=== PATIENT | female | born 1975 | race Caucasian/White ===

== ENCOUNTER 2018-11-14 09:18 | Inpatient (IN) | payer SELFPAY ==
[~2018-11-14] VITALS: Ht 152.4 cm; Wt 81.6 kg
[2018-11-14 09:22] VITALS: BP 131/92
[2018-11-14] MEDS ORDERED: NACL 0.9% 1,000 ML IV ONE (09:26)
[2018-11-14 09:48] LABS: BASOPHILS % (AUTO) 0.4 % (0.0-2.0); EOSINOPHILS # (AUTO) 0.2 K/uL (0-0.4); EOSINOPHILS % (AUTO) 1.6 % (0.0-4.0); HEMATOCRIT 37.9 % (36-48); LYMPHOCYTES # (AUTO) 3.9 K/uL (2.5-16.5); LYMPHOCYTES % (AUTO) 36.2 % (20.5-51.1); MEAN CORPUSCULAR HEMOGLOBIN 25 pg (27-31); MEAN CORPUSCULAR HGB CONC 32 g/dL (33-37); MEAN CORPUSCULAR VOLUME 77.1 fL (80-94); MONOCYTES # (AUTO) 0.7 K/uL (0.8-1.0); MONOCYTES % (AUTO) 6.5 % (1.7-9.3); NEUTROPHILS % (AUTO) 55.3 % (42.2-75.2); PLATELET COUNT (AUTO) 256 K/uL (140-450); RED BLOOD CELL COUNT(AUTO) 4.92 MIL/uL (4.20-5.40); RED CELL DISTRIBUTION WIDTH 17.1 % (11.6-13.7); WHITE BLOOD COUNT (AUTO) 10.9 K/uL (4.8-10.8)
[2018-11-14] MEDS ORDERED: PREG200C PO (09:54)
[2018-11-14] MEDS ORDERED: CLON0.2T43 PO (09:54)
[2018-11-14] MEDS ORDERED: MIRT15TA PO (09:54)
[2018-11-14] MEDS ORDERED: CYCL10TA13 PO (09:54)
[2018-11-14 10:01] LABS: APPEARANCE,URINE HAZY (CLEAR); BILIRUBIN,URINE NEGATIVE (NEGATIVE); BLOOD, URINE 3+ (NEGATIVE); COLOR,URINE YELLOW (YELLOW); LEUKOCYTE ESTERASE ,URINE NEGATIVE (NEGATIVE); NITRITE, URINE NEGATIVE (NEGATIVE); PH,URINE 5.5 (5.0-9.0); UGLUCOSE 3+ (NEGATIVE)
[2018-11-14 10:07] LABS: ALBUMIN 3.5 g/dL (3.4-5.0); ANION GAP 18.5 (8-16); ASPARTATE AMINOTRANSFERASE 19 U/L (15-37); CARBON DIOXIDE 21.3 mmol/L (21-32); CHLORIDE 95 mmol/L (98-107); CREATININE 0.9 mg/dL (0.6-1.3); GFR ARICAN-AMERICAN 89 mL/min (>90); GLUCOSE 290 mg/dL (74-106); POTASSIUM 3.8 mmol/L (3.5-5.1); SALICYLATE 4.8 mg/dL (2.8-20.0); SODIUM SERUM 131 mmol/L (136-145); TOTAL BILIRUBIN 0.2 mg/dL (0.0-1.0); UREA NITROGEN, BLOOD 21 mg/dL (7-18)
[2018-11-14 10:28] LABS: RBC,URINE 11-20 (MOD) /HPF (0-5); WBC,URINE 0-5 (RARE) /HPF (0-5)
[2018-11-14 10:51] LABS: BARBITURATE, URINE NEG. ng/ml (NEG <=200); BENZODIAZEPINE, URINE NEG. ng/mL (NEG <=200); CANNABINOID, URINE POS. ng/mL (NEG <=50); COCAINE, URINE NEG. ng/mL (NEG <=300); OPIATE, URINE POS. ng/mL (NEG <=2000); PHENCYCLIDINE SCREEN,URINE NEG. ng/mL (NEG <=25)
[2018-11-14 12:02] LABS: ACETAMINOPHEN < 0.5 ug/ml (10-30)
[2018-11-14] MEDS ORDERED: NACL 0.9% 1,000 ML IV SCH (12:07)
[2018-11-14] MEDS ORDERED: ONDANSETRON 4 MG/2 ML VIAL IM/IVP PRN (12:10)
[2018-11-14] MEDS ORDERED: ACETAMINOPHEN 325 MG TAB PO PRN (12:10)
[2018-11-14] MEDS ORDERED: HYDROcodone/APAP 5/325 MG 1 TAB TAB PO PRN (12:10)
[2018-11-14] MEDS ORDERED: DOCUSATE SODIUM 100 MG GELCAP PO PRN (12:10)
[2018-11-14] MEDS ORDERED: ZOLPIDEM 5 MG TAB PO PRN (12:10)
[2018-11-14] MEDS ORDERED: LORazepam 2 MG/ML VIAL IM/IVP PRN (12:10)
[2018-11-14 13:04] LABS: MAGNESIUM 1.8 mg/dL (1.8-2.4); PHOSPHORUS 5.5 mg/dL (2.5-4.9); THYROID STIMULATING HORMONE 1.73 uIU/mL (0.34-3.74)
[2018-11-14 13:10] VITALS: BP 131/70
[2018-11-14 13:17] LABS: PROTHROMBIN TIME 9.3 secs (10.8-13.4)
[2018-11-14] MEDS ORDERED: INSULIN LISPRO SLIDING SCALE 100 UNITS/ML VIAL SUBQ PRN (13:30)
[2018-11-14] MEDS ORDERED: DEXTROSE 50% 50 ML SYR IVP PRN (13:30)
[2018-11-14] MEDS ORDERED: DULO60EC PO (15:49)
[2018-11-14] MEDS ORDERED: BLOOD GLUCOSE MONITORING 1 DEV DEV FS SCH (16:30)
[2018-11-14] MEDS ORDERED: MIRTAZAPINE 15 MG TAB PO SCH (21:00)
[2018-11-14] MEDS ORDERED: PREGABALIN 50 MG CAP PO SCH (21:00)
== END 2018-11-14 15:50 | disposition left against medical advice (07) | DRG 917 ==
LOC: MED 09:18 → MTU 12:07
PROVIDERS: ADMIT General Practice; ATTEND General Practice
DX: T43.92XA Poisoning by unspecified psychotropic drug, intentional self-harm, initial encounter (principal); G92 Toxic encephalopathy; D68.59 Other primary thrombophilia; E87.1 Hypo-osmolality and hyponatremia; T39.92XA Poisoning by unspecified nonopioid analgesic, antipyretic and antirheumatic, intentional self-harm, initial encounter; E66.01 Morbid (severe) obesity due to excess calories; F43.10 Post-traumatic stress disorder, unspecified; Z53.21 Procedure and treatment not carried out due to patient leaving prior to being seen by health care provider; R31.9 Hematuria, unspecified; E11.40 Type 2 diabetes mellitus with diabetic neuropathy, unspecified; E83.39 Other disorders of phosphorus metabolism; F12.90 Cannabis use, unspecified, uncomplicated; Y92.89 Other specified places as the place of occurrence of the external cause; Z89.512 Acquired absence of left leg below knee; Z79.899 Other long term (current) drug therapy; Z68.35 Body mass index [BMI] 35.0-35.9, adult
CPT/HCPCS: 36415; 70450; 71045; 80053; 80305; 81001; 81025; 82948; 83036; 83690; 83735; 83880; 84100; 84134; 84443; 84484; 85025; 85610; 85730; 87081; 93005; 96360; 96361; 99285; G0480; G0482; J7030

== ENCOUNTER 2018-12-04 13:19 | Emergency (ER) | payer SELFPAY ==
[~2018-12-04] VITALS: Ht 167.6 cm; Wt 72.6 kg
[~2018-12-04 13:19] MED LIST: CLON0.2T43 PO; CYCL10TA13 PO; DULO60EC PO; MIRT15TA PO; PREG200C PO
[2018-12-04 13:20] VITALS: BP 126/83
--- NOTE | 2018-12-04 14:05 | NUR ---
LEFT WOUND TO STUMP X >1 WK ---BELOW KNEE AMPUTATION, RECURRING WOUND PT STATES SEEN AT [facility] DX OSTEOMYELITIS DRAINAGE NOTED
[2018-12-04 15:44] LABS: APPEARANCE,URINE CLEAR (CLEAR); BILIRUBIN,URINE NEGATIVE (NEGATIVE); BLOOD, URINE TRACE-I (NEGATIVE); COLOR,URINE YELLOW (YELLOW); LEUKOCYTE ESTERASE ,URINE NEGATIVE (NEGATIVE); NITRITE, URINE NEGATIVE (NEGATIVE); UGLUCOSE 3+ (NEGATIVE)
[2018-12-04 15:52] LABS: RBC,URINE 3-10 (FEW) /HPF (0-5); WBC,URINE 0-5 (RARE) /HPF (0-5)
[2018-12-04 15:54] LABS: BARBITURATE, URINE NEG. ng/ml (NEG <=200); BENZODIAZEPINE, URINE NEG. ng/mL (NEG <=200); CANNABINOID, URINE POS. ng/mL (NEG <=50); COCAINE, URINE NEG. ng/mL (NEG <=300); OPIATE, URINE NEG. ng/mL (NEG <=2000); PHENCYCLIDINE SCREEN,URINE NEG. ng/mL (NEG <=25)
--- NOTE | 2018-12-04 16:15 | NUR ---
pt requesting pain medication, ed md notified.
[2018-12-04 16:28] LABS: BASOPHILS % (AUTO) 0.2 % (0.0-2.0); EOSINOPHILS % (AUTO) 0.4 % (0.0-4.0); HEMATOCRIT 32.8 % (36-48); HEMOGLOBIN 10.6 g/dL (12.0-16.0); LYMPHOCYTES # (AUTO) 3.1 K/uL (2.5-16.5); LYMPHOCYTES % (AUTO) 28.6 % (20.5-51.1); MEAN CORPUSCULAR HEMOGLOBIN 25 pg (27-31); MEAN CORPUSCULAR HGB CONC 32 g/dL (33-37); MONOCYTES # (AUTO) 0.8 K/uL (0.8-1.0); MONOCYTES % (AUTO) 7.2 % (1.7-9.3); NEUTROPHILS % (AUTO) 63.6 % (42.2-75.2); PLATELET COUNT (AUTO) 289 K/uL (140-450); RED BLOOD CELL COUNT(AUTO) 4.26 MIL/uL (4.20-5.40); RED CELL DISTRIBUTION WIDTH 16.5 % (11.6-13.7); WHITE BLOOD COUNT (AUTO) 10.9 K/uL (4.8-10.8)
--- NOTE | 2018-12-04 16:40 | NUR ---
pt requesting pain medication, ed md notified.
[2018-12-04 16:49] LABS: ANION GAP 11.1 (8-16); CARBON DIOXIDE 23.5 mmol/L (21-32); CREATININE 0.7 mg/dL (0.6-1.3); POTASSIUM 3.6 mmol/L (3.5-5.1)
[2018-12-04 16:55] LABS: ALBUMIN 2.8 g/dL (3.4-5.0); TOTAL BILIRUBIN 0.2 mg/dL (0.0-1.0)
[2018-12-04] MEDS ORDERED: LORazepam 2 MG/ML VIAL IM ONE (17:35)
[2018-12-04 18:54] VITALS: BP 130/81
== END 2018-12-04 18:50 | disposition home or self-care (01) ==
LOC: MED 13:19
DX: L29.9 Pruritus, unspecified (principal); R45.1 Restlessness and agitation; I10 Essential (primary) hypertension; E11.51 Type 2 diabetes mellitus with diabetic peripheral angiopathy without gangrene; E11.42 Type 2 diabetes mellitus with diabetic polyneuropathy; Z89.512 Acquired absence of left leg below knee; Z88.5 Allergy status to narcotic agent; Z79.899 Other long term (current) drug therapy
CPT/HCPCS: 36415; 73590; 80053; 80305; 81001; 81025; 83605; 85025; 87040; 87086; 96372; 99284; J2060; Q0092

== ENCOUNTER 2019-04-07 19:07 | Emergency (ER) | payer OTHER ==
[~2019-04-07] VITALS: Ht 172.7 cm; Wt 90.7 kg
[2019-04-07 19:09] VITALS: BP 115/90
--- NOTE | 2019-04-07 19:09 | NUR ---
1906 ANNA TAKEN TO ER BED 6
--- NOTE | 2019-04-07 19:09 | NUR ---
TO ED 06 VIA EMS [facility]
--- NOTE | 2019-04-07 19:20 | NUR ---
PT IS SCREAMING, UNCOOPERATIVE, BEING VERBALLY ABUSIVE TO STAFF, CURSING AT NURSING STAFF. PT CRYING UNCONTROLLABLY AND YELLING IN BED.
--- NOTE | 2019-04-07 19:56 | NUR ---
PATIENT LEFT WITHOUT BEING SEEN BY DR. JIMÉNEZ. NO FURTHER CARE PROVIDED FOR PATIENT.
--- NOTE | 2019-04-07 19:56 | NUR ---
PT WANTS TO LEAVE AND NO LONGER RECEIVE TREATMENT OR BE SEEN BY A DOCTOR. PT ASKING FOR W/C TO BE TAKEN TO ER LOBBY TO WAIT FOR HER FAMILY TO PICK HER UP. DR. JIMÉNEZ MADE AWARE.
--- NOTE | 2019-04-07 19:57 | NUR ---
PT ASSISTED INTO W/C AND PLACED IN ER LOBBY TO WAIT FOR HER FAMILY. NO FURTHER CARE PROVIDED.
== END 2019-04-07 19:56 | disposition left against medical advice (07) ==
LOC: MED 19:07
DX: R10.9 Unspecified abdominal pain (principal); R11.2 Nausea with vomiting, unspecified; R19.7 Diarrhea, unspecified; Z53.21 Procedure and treatment not carried out due to patient leaving prior to being seen by health care provider
CPT/HCPCS: 81002; 81025

== ENCOUNTER 2020-07-14 18:02 | Inpatient (IN) | payer OTHER ==
[~2020-07-14] VITALS: Ht 170.2 cm; Wt 81.6 kg
--- NOTE | 2020-07-14 18:02 | NUR ---
Patient BIBA BLS, transferred to bed 6. RN evaluating patient at bedside.
[2020-07-14 18:05] VITALS: BP 134/80
--- NOTE | 2020-07-14 18:16 | NUR ---
45 y/o female from home c/o abd cramping x 2 wks, vaginal bleeding since last night, and a headahce. Pt presents with open wound to back, states she had abscess drained. Pt anxious and tearful in bed. 10/10 abd cramping with nausea and vomiting. Positioned in bed for comfort and placed on bedside monitor. medhx: HTN, DM
[2020-07-14] MEDS ORDERED: ONDANSETRON 4 MG/2 ML VIAL IVP ONE (18:25)
[2020-07-14] MEDS ORDERED: NACL 0.9% 1,000 ML IV ONE ×2 (18:25→20:25)
[2020-07-14] MEDS ORDERED: fentaNYL citrate 0.05 MG/ML VIAL IVP ONE (18:25)
--- NOTE | 2020-07-14 18:25 | NUR ---
HANNAH Dietrich at bedside examining pt
--- NOTE | 2020-07-14 18:38 | NUR ---
22g placed to right upper arm. Medications given at this time.
[2020-07-14] MEDS ORDERED: TRAZ-343 PO (18:54)
[2020-07-14] MEDS ORDERED: TRAM50TA1 PO (18:54)
[2020-07-14] MEDS ORDERED: LEVEMIR SUBQ (18:54)
--- NOTE | 2020-07-14 18:57 | NUR ---
400cc clear yellow urine collected from pt via straight cath.
[2020-07-14] MEDS ORDERED: TOR30I IM (18:58)
[2020-07-14] MEDS ORDERED: GABA300C PO (18:58)
[2020-07-14] MEDS ORDERED: BEN50 PO (18:58)
--- NOTE | 2020-07-14 19:08 | NUR ---
Patient taken to CT scan via gurney by [employer] [facility]
--- NOTE | 2020-07-14 19:17 | NUR ---
Pt report RECEIVED FROM SHIRA SUN . Transfer of care at this time.
[2020-07-14 19:22] LABS: APPEARANCE,URINE SL CLOUDY (CLEAR); BILIRUBIN,URINE NEGATIVE (NEGATIVE); BLOOD, URINE 3+ (NEGATIVE); COLOR,URINE YELLOW (YELLOW); LEUKOCYTE ESTERASE ,URINE NEGATIVE (NEGATIVE); NITRITE, URINE NEGATIVE (NEGATIVE); PH,URINE 5.5 (5.0-9.0); UGLUCOSE 3+ (NEGATIVE)
[2020-07-14 19:30] LABS: RBC,URINE 20-50 /HPF (0-5); WBC,URINE 0-5 /HPF (0-5)
[2020-07-14 19:31] LABS: FINE GRANULAR CASTS,URINE 0-10 /LPF (None Seen)
[2020-07-14 19:43] LABS: BASOPHILS % (AUTO) 0.2 % (0.0-2.0); EOSINOPHILS % (AUTO) 0.5 % (0.0-4.0); HEMATOCRIT 32.4 % (36-48); HEMOGLOBIN 10.4 g/dL (12.0-16.0); LYMPHOCYTES # (AUTO) 2.4 K/uL (2.5-16.5); LYMPHOCYTES % (AUTO) 25.9 % (20.5-51.1); MEAN CORPUSCULAR HEMOGLOBIN 29 pg (27-31); MEAN CORPUSCULAR HGB CONC 32 g/dL (33-37); MEAN CORPUSCULAR VOLUME 91.9 fL (80-94); MONOCYTES # (AUTO) 0.5 K/uL (0.8-1.0); MONOCYTES % (AUTO) 5.6 % (1.7-9.3); NEUTROPHILS # (AUTO) 6.3 K/uL (1.8-7.7); NEUTROPHILS % (AUTO) 67.8 % (42.2-75.2); PLATELET COUNT (AUTO) 229 K/uL (140-450); RED BLOOD CELL COUNT(AUTO) 3.53 MIL/uL (4.20-5.40); RED CELL DISTRIBUTION WIDTH 14.4 % (11.6-13.7); WHITE BLOOD COUNT (AUTO) 9.3 K/uL (4.8-10.8)
[2020-07-14 19:55] LABS: ALBUMIN 2.4 g/dL (3.4-5.0); ANION GAP 20.1 (8-16); CARBON DIOXIDE 15.2 mmol/L (21-32); CREATININE 1.4 mg/dL (0.6-1.3); POTASSIUM 4.3 mmol/L (3.5-5.1); TOTAL BILIRUBIN 0.2 mg/dL (0.0-1.0)
--- NOTE | 2020-07-14 20:05 | NUR ---
PT RESTING IN BED IN POSITION OF COMFORT, BED LOW AND LOCKED, SIDERAILS UP, VSS, WILL CONTINUE TO MONITOR
[2020-07-14] MEDS ORDERED: INSULIN REGULAR, HUMAN 100 UNIT/ML VIAL IVP ONE (20:25)
[2020-07-14] MEDS ORDERED: NACL 0.9% 1,000 ML IV SCH (20:53)
--- NOTE | 2020-07-14 20:54 | NUR ---
WOUND PHOTO TAKEN AND IN PT'S CHART (PRESENT ON ADMISSION )
[2020-07-14] MEDS ORDERED: INSULIN REGULAR, HUMAN 100 UNIT in NACL 0.9% 100 ML IV SCH ×2 (21:15)
[2020-07-14] MEDS ORDERED: DEXTROSE 50% 50 ML SYR IVP PRN (21:15)
[2020-07-14] MEDS ORDERED: cefTRIAXone 1,000 MG VIAL ONE (21:25)
[2020-07-14] MEDS: BLOOD GLUCOSE MONITORING 1 DEV DEV FS SCH ×3 (21:30→23:30)
--- NOTE | 2020-07-14 21:33 | NUR ---
PT RESTING IN BED IN POSITION OF COMFORT, BED LOW AND LOCKED, SIDERAILS UP, VSS, WILL CONTINUE TO MONITOR
--- NOTE | 2020-07-14 21:35 | NUR ---
BLOOD SUGAR ACCU CHECK 384, HANNAH HERRON MADE AWARE
--- NOTE | 2020-07-14 22:29 | NUR ---
Patient being evaluated by at bedside.
--- NOTE | 2020-07-14 22:30 | NUR ---
ACCU CHECK 338, MADE AWARE
--- NOTE | 2020-07-14 22:30 | NUR ---
PT RESTING IN BED IN POSITION OF COMFORT, BED LOW AND LOCKED, SIDERAILS UP, VSS, WILL CONTINUE TO MONITOR
--- NOTE | 2020-07-14 23:30 | NUR ---
PT RESTING IN BED IN POSITION OF COMFORT, BED LOW AND LOCKED, SIDERAILS UP, VSS, WILL CONTINUE TO MONITOR
--- NOTE | 2020-07-14 23:48 | NUR ---
* PT STATED SHE HAS NOT SMOKED OR USED DRUGS AND IS FEELING ANXIOUS AND WANTS SOMETHING TO HELP CALM DOWN, WILL PHONE
--- NOTE | 2020-07-14 23:50 | NUR ---
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
--- NOTE | 2020-07-14 23:53 | NUR ---
PHONED BACK AND GAVE VERBAL ORDER FOR 1MG IVP ATIVAN Q6HR PRN, NOTED AND CARRIED OUT
--- NOTE | 2020-07-14 23:58 | NUR ---
Flakito arreaga in [facility] - 07/15/20 at 0026 by CHITRA PT STATED SHE HAS NOT SMOKED OR USED DRUGS AND IS FEELING ANXIOUS AND WANTS SOMETHING TO HELP CALM DOWN, WILL PHONE
[2020-07-15] MEDS: BLOOD GLUCOSE MONITORING 1 DEV DEV FS SCH ×14 (00:30→20:59)
--- NOTE | 2020-07-15 00:30 | NUR ---
PT RESTING IN BED IN POSITION OF COMFORT, BED LOW AND LOCKED, SIDERAILS UP, VSS, WILL CONTINUE TO MONITOR
[2020-07-15 00:38] LABS: CARBON DIOXIDE 19.8 mmol/L (21-32); CREATININE 0.9 mg/dL (0.6-1.3); POTASSIUM 3.8 mmol/L (3.5-5.1)
--- NOTE | 2020-07-15 00:43 | NUR ---
PHONED [facility] AND SPOKE TO GRETCHEN (PHARMACIST) AND ASKED IF SHE CAN VERIFY THE INSULIN AND ATIVAN THAT IS NOT SHOWING IN THE eMAR YET, PHARMACIST STATED SHE WILL VERIFY THE MEDICATIONS NOW.
[2020-07-15] MEDS: LORazepam 2 MG/ML VIAL IVP PRN ×2 (00:51→21:17)
--- NOTE | 2020-07-15 00:51 | NUR ---
PT STILL FEELING ANXIOUS, GAVE PRN ATIVAN 1MG
--- NOTE | 2020-07-15 01:30 | NUR ---
PT RESTING IN BED IN POSITION OF COMFORT, BED LOW AND LOCKED, SIDERAILS UP, VSS, WILL CONTINUE TO MONITOR
[2020-07-15] MEDS: ACETAMINOPHEN 325 MG TAB PO PRN (01:52)
--- NOTE | 2020-07-15 01:52 | NUR ---
PT C/O PAIN, GAVE PRN TYLENOL 650MG
--- NOTE | 2020-07-15 02:30 | NUR ---
PT RESTING IN BED IN POSITION OF COMFORT, BED LOW AND LOCKED, SIDERAILS UP, VSS, WILL CONTINUE TO MONITOR
[2020-07-15] MEDS: MORPHINE SULFATE 4 MG/ML SYR IVP PRN ×5 (03:05→23:44)
--- NOTE | 2020-07-15 03:05 | NUR ---
PT C/O OF PAIN , STATING TYLENOL DID NOT PROVIDE MUCH RELIEF, SO GAVE 1MG PRN MORPHINE IVP AT THIS TIME.
--- NOTE | 2020-07-15 03:30 | NUR ---
PT RESTING IN BED IN POSITION OF COMFORT, BED LOW AND LOCKED, SIDERAILS UP, VSS, WILL CONTINUE TO MONITOR
--- NOTE | 2020-07-15 03:40 | NUR ---
RIGHT UPPER ARM IV INFILTRATED AND WAS D/C
--- NOTE | 2020-07-15 03:45 | NUR ---
LEFT EXTERNAL JUGULAR 20 GAUGE INSERTED AND HAS BLOOD RETURN AND FLUSHES
--- NOTE | 2020-07-15 04:01 | NUR ---
LAB AT BEDSIDE
--- NOTE | 2020-07-15 04:30 | NUR ---
PT RESTING IN BED IN POSITION OF COMFORT, BED LOW AND LOCKED, SIDERAILS UP, VSS, WILL CONTINUE TO MONITOR
[2020-07-15 05:16] LABS: BASOPHILS % (AUTO) 0.4 % (0.0-2.0); EOSINOPHILS # (AUTO) 0.2 K/uL (0-0.4); EOSINOPHILS % (AUTO) 1.6 % (0.0-4.0); HEMATOCRIT 31.1 % (36-48); HEMOGLOBIN 10.3 g/dL (12.0-16.0); LYMPHOCYTES % (AUTO) 48.2 % (20.5-51.1); MEAN CORPUSCULAR HEMOGLOBIN 29 pg (27-31); MEAN CORPUSCULAR HGB CONC 33 g/dL (33-37); MEAN CORPUSCULAR VOLUME 87.6 fL (80-94); MONOCYTES # (AUTO) 0.6 K/uL (0.8-1.0); MONOCYTES % (AUTO) 6.2 % (1.7-9.3); NEUTROPHILS # (AUTO) 4.5 K/uL (1.8-7.7); NEUTROPHILS % (AUTO) 43.6 % (42.2-75.2); PLATELET COUNT (AUTO) 239 K/uL (140-450); RED BLOOD CELL COUNT(AUTO) 3.55 MIL/uL (4.20-5.40); RED CELL DISTRIBUTION WIDTH 14.1 % (11.6-13.7); WHITE BLOOD COUNT (AUTO) 10.4 K/uL (4.8-10.8)
--- NOTE | 2020-07-15 05:30 | NUR ---
PT ASLEEP IN BED IN POSITION OF COMFORT, BED LOW AND LOCKED, SIDERAILS UP, VSS, WILL CONTINUE TO MONITOR
--- NOTE | 2020-07-15 05:38 | NUR ---
PHONED EXCHANGE AND SPOKE TO BAUTISTA AND ASKED HER TO PAGE
--- NOTE | 2020-07-15 05:44 | NUR ---
PHONED BACK AND I INFORMED HIM THE LAST ACCU CHECK WAS 145 AND TOLD HIM WHEN THERE IS NORMALLY AN ICU HOLD IN THE ER AND THE PT IS ON AN INSULIN DRIP THERE IS A STANDING ORDER THAT STATES TO SWITCH TO D5 1/2NS WHEN BLOOD SUGAR FALLS BELOW 200. GAVE T/O TO STOP NS AND SWITCH TO D5 1/2NS AT 80ML/HR, NOTED AND CARRIED OUT. ALSO, INFORMED THAT THERE USUALLY IS AN ORDER FOR INSULIN DRIP BASED ON WEIGHT, AND INQUIRED IF WOULD LIKE TO SWITCH TO THE INSULIN DRIP ORDER, HE STATED HE TRIED BUT THE COMPUTER WOULD NOT ALLOW HIM TO, SO THE INSULIN DRIP TITRATION BY UNITS/HR IS WHAT HE PUT IN THE eMAR TO BE FOLLOWED.
[2020-07-15] MEDS ORDERED: DEXT 5% / NACL 0.45% 1,000 ML IV SCH (05:50)
[2020-07-15 06:00] LABS: ALBUMIN 2.3 g/dL (3.4-5.0); ANION GAP 15.4 (8-16); CARBON DIOXIDE 19.4 mmol/L (21-32); CREATININE 0.8 mg/dL (0.6-1.3); MAGNESIUM 1.8 mg/dL (1.8-2.4); POTASSIUM 3.8 mmol/L (3.5-5.1); TOTAL BILIRUBIN 0.2 mg/dL (0.0-1.0)
--- NOTE | 2020-07-15 06:30 | NUR ---
PT RESTING IN BED IN POSITION OF COMFORT, BED LOW AND LOCKED, SIDERAILS UP, VSS, WILL CONTINUE TO MONITOR
--- NOTE | 2020-07-15 07:00 | NUR ---
TRANSPORTED PT TO ICU BED 4
--- NOTE | 2020-07-15 07:20 | NUR ---
Patient will be admitted to care of . Admited to ICU. Will go to room 4. Belongings list completed. Report to SHIRA GAYTAN.
--- NOTE | 2020-07-15 08:07 | NUR ---
PATIENT COMPLAINED 8/10 PAIN ON HER BACK ABSCESS, DESCRIBED PAIN SHARP, AND SEVERE. ADMINISTERED PRN PAIN MED MORPHINE VIA IVP AND SCHEDULED ENOXAPARIN VIA SUBQ, MEDS EDUCATION PROVIDED TO PATIENT, AND PATIENT VERBALIZED UNDERSTANDING. PATIENT IS RESTING ON BED AT THIS TIME. INSTRUCTED PATIENT TO USE THE CALL LIGHT FOR ANY ASSISTANCE, PATIENT WAS AWARE. SAFETY MEASURES IN PLACE. BED IN LOW POSITION, CALL LIGHT WITHIN REACH, BED ALARM ACTIVATED.
--- NOTE | 2020-07-15 08:17 | NUR ---
CHECKED BLOOD GLUCOSE AND RECEIVED 155, INSULIN DRIP IS GOING AT 1 UNIT/HR.
[2020-07-15 08:21] LABS: ANION GAP 14.9 (8-16); CARBON DIOXIDE 19.2 mmol/L (21-32); CREATININE 0.7 mg/dL (0.6-1.3); POTASSIUM 4.1 mmol/L (3.5-5.1)
--- NOTE | 2020-07-15 08:56 | NUR ---
DR WARREN IS ASSESSING PATIENT AT BEDSIDE. PER DR WARREN, MAY DC INSULIN DRIP AND PATIENT MAY RESUME EATING. SHE WILL INPUT ORDERS FOR LONG ACTING INSULIN AND IVF. PROVIDED FOOD TRAY TO PATIENT.
[2020-07-15] MEDS ORDERED: ENOXAPARIN 40 MG/0.4 ML SYR SUBQ SCH (09:00)
[2020-07-15 09:04] VITALS: BP 113/72
--- NOTE | 2020-07-15 09:13 | NUR ---
PATIENT HAS BEEN SCREENED AND CATEGORIZED HIGH NUTRITION RISK. PATIENT WILL BE SEEN WITHIN 1-2 DAYS OF ADMISSION. 07/15/20-07/16/[address]
[2020-07-15] MEDS: NACL 0.9% 1,000 ML IV SCH ×2 (10:09→21:40)
--- NOTE | 2020-07-15 10:35 | NUR ---
ASSIST PATIENT TO USE THE BEDSIDE COMMODE FOR BM AND BACK TO BED SAFELY. REQUESTED FOR EXTRA PILLOW, PROVIDED. PATIENT IS RESTING ON BED COMFORTABLY AND WATCHING TV. NO SIGNS OF DISTRESS NOTED. DRAW IN HAND IN PLACE. SAFETY MEASURES IN PLACE. BED IN LOW POSITION AND CALL LIGHT WITHIN REACH.
[2020-07-15 11:04] VITALS: BP 111/61
--- NOTE | 2020-07-15 11:05 | NUR ---
DC PLANNIN YRS OLD FEMALE HOMELESS PATIENT WAS ADMITTED FROM ER WITH A DX OF DKA AND ACUTE UTI . 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 ADMITTED TO ICU ON DKA PROTOCOL. PT HAS WOUND ON HER BACK S/P I&D AT [facility]. URINE CULTURE PENDING. ADMINISTERED IVF AND IV ABX ROCEPHIN. SALES AND MARKETING ASSISTANT TO EVALUATE FOR HOMELESSNESS. CM TO FOLLOW. Addendum: 07/16/20 at 1033 by Anat Enamorado CM SPOKE TO PATIENT SHE IS WILLING TO GO TO A SNF SHE PREFERS [facility] BECAUSE SHE HAS BEEN THERE BEFORE AND IT IS CLOSE BY HER CHILDREN. SHE STATED THAT SHE IS HOMELESS BUT SOMETIMES STAYS WITH HER MOTHER BUT IT IS HARD FOR HER TO STAY THERE BECAUSE SHE CAN NOT AMBULATE UP AND DOWN THE STAIRS. Addendum: 07/16/20 at 1044 by Anat Enamorado CM LARY NAYLOR: SPOKE TO ALEKSEY AT [facility] SHE STATED THAT "UNFORTUNATELY THIS PATIENT IS NOT WELCOME BACK TO THEIR FACILITY." I WILL REACH OUT TO [facility]. Addendum: 07/16/20 at 1148 by Anat Enamorado CM LARY NAYLOR: FAXED PATIENTS CLINICALS TO [facility] [phone] AND FOLLOWED UP WITH [facility]. SHE IS REVIEWING THE PATIENTS CLINICALS. Addendum: 07/16/20 at 1223 by Anat Enamorado CM LARY NAYLOR: FOLLOWED UP WITH CASSIUS AT [facility] SHE SAID SHE WILL CONTACT ME BACK IN AN HOUR BECAUSE HER DON WAS IN A MEETING. Addendum: 07/16/20 at 1355 by Anat Enamorado CM LARY NAYLOR: SPOKE WITH [facility] AT THIS TIME THEY ARE NOT ABLE TO ACCEPT THIS PATIENT DUE TO BED AVAILABILITY. THEY HAVE HAD AN INCREASE OF PATIENT TEST POSITIVE FOR COVID SO THEY ARE FULL AT THIS TIME. Addendum: 07/16/20 at 1358 by Anat Enamorado CM LARY NAYLOR: FAXED PATIENTS CLINICALS TO [facility] WILL FOLLOW UP. Addendum: 07/17/20 at 0850 by Anat Enamorado CM DC MORTAR MIXER: SPOKE WITH MAYLIN PHILLIPS [facility] THIS MORNING SHE WILL LET ME KNOW IF THEY HAVE AN AVAILABLE BED TODAY AFTER THEIR MORNING MEETING AROUND 10:00 AM Addendum: 07/17/20 at 1015 by Anat Enamorado DC MORTAR MIXER: FOLLOWED UP WITH MANNIE AT [facility] SHE PROVIDED AUTH FOR SNF [id number] AND TRANSPORTATION [id number]. SPOKE TO HER ABOUT THIS PATIENT BEING A LITTLE DIFFICULT TO FIND PLACEMENT FOR SHE ASKED THAT I FAX CLINICALS TO [facility] BECAUSE [facility] "DIFFICULT PLACEMENT TEAM" HAS BEEN TRYING TO FIND PLACEMENT FOR THIS PATIENT WELL AND HAS BEEN IN CONTACT WITH THERESE AT [facility]. FAXED CLINICALS AND SPOKE TO THERESE. SHE WILL FOLLOW UP WITH ME. ALSO SPOKE TO MANNIE REGARDING ORDER FOR WALKER, SHE STATED THAT THE PATIENT ALREADY HAS ONE AND WILL NOT BE ABLE TO GET AUTH FOR ANOTHER BUT SHE WILL LOOK INTO SEEING IF THE PATIENT WILL QUALIFY FOR A WHEEL CHAIR Addendum: 07/17/20 at 1129 by Anat Enamorado CM LARY NAYLOR: FOLLOWED UP WITH THERESE AT [facility] [phone]. THIS PATIENT HAS BEEN ACCEPTED TO ROOM [address] UNDER [address]OW[address]. THERESE ASKED THAT I SET UP TRANSPORTATION AFTER 6:00 PM BECAUSE THEY ARE WORKING ON ROOM CHANGES. NOTIFIED SHIRA CAZARES. Addendum: 07/17/20 at 1146 by Anat Enamorado CM LARY NAYLOR: TRANSPORTATION HAS BEEN SET UP WITH [facility] [phone] FOR 6:00 PM. NOTIFIED SHIRA
--- NOTE | 2020-07-15 11:08 | NUR ---
WOUND CARE EVALUATION NOTE: WOUND ASSESSMENT DONE TO THIS 45 Y/O FEMALE PT. WITH PAST MEDICAL HX OF DKA, DM, DRUG ABUSE, AND RECENT I&D TO POSTERIOR RIGHT UPPER BACK, MULTIPLE DRY PEELING SCABS EXTREMITIES AND TRUNK OF BODY. PER PT. SHE HAS HOME HEALTH NURSE DO HER WOUND CARE 3X/WEEK FOR PAST 3 WEEKS. POC DISCUSSED WITH PRIMARY RN AND PT. PT. VERBALIZES UNDERSTANDING. INTEGUMENTARY: -LEFT BKA STUMP OLD HEALED SCARS -LEFT MEDIAL UPPER THIGH 0.5X0.5CM SUPERFICIAL DEPTH, NO ODOR, SMALL AMOUNT SEROSANGUINEOUS DRAINAGE, VERA-WOUND SKIN WARM WITH INDURATION, PAIN TO TOUCH 4/10 -POSTERIOR RIGHT UPPER BACK SURGICAL WOUND 10X5X0.2CM 100% GRANULATING TISSUE, NO ODOR, WOUND BED IS MOIST, VERA WOUND SKIN DRY INTACT. RECOMMENDATIONS: -ULTRASOUND TO LEFT MEDIAL UPPER THIGH TO R/O ABSCESS -CLEANSE SURGICAL WOUND TO POSTERIOR RIGHT UPPER BACK WITH NS, PAT DRY, APPLY HYDROGEL WOT WOUND BED AND COVER WITH COMPOSITE DRESSING QD AND PRN IF SOILING -CONTINUE TO HAVE HOME HEALTH FOR WOUND CARE WHEN DISCHARGED
--- NOTE | 2020-07-15 11:30 | NUR ---
ADMITTING CALLED AND WANTED TO OBTAIN INFORMATION FROM PATIENT, BUT PATIENT REFUSED TO TALK TO ANYONE. PER PATIENT, HER EMERGENCY CONTACT IS HER MOM AQUILINO, BUT REQUEST NOT TO RELEASE ANY INFORMATION TO AQUILINO, MAY ONLY TELL AQUILINO THAT SHE IS IN THE HOSPITAL. PATIENT IS SLEEPY ON BED COMFORTABLY AND AROUSABLE TO VOICE. CONTINUOUS MINING MACHINE COMPANY MINER IN PLACE. SAFETY MEASURES IN PLACE.
--- NOTE | 2020-07-15 11:36 | NUR ---
PRODUCT MARKETING DIRECTOR NOTE: ESTHER WAS UNABLE TO MEET PATIENT AT BEDSIDE. SW WILL FOLLOW UP WITH ICU NURSE TO COMPLETE ASSESSMENT. Addendum: 07/15/20 at 1346 by Reji Yee SW WAS UNABLE TO MEET PATIENT AT BEDSIDE DUE TO MEDICAL CONDITION. ESTHER CONTACTED SHIRA GAYTAN REGARDING COMPLETING ASSESSMENT WITH PATIENT. PER LUCILA, PATIENT REFUSED TO SPEAK ON THE PHONE. ESTHER WILL FOLLOW UP WITH PATIENT. Addendum: 07/15/20 at 1407 by Reji Yee Patient's Orientation Unable To Assess Information Provided By AQUILINO ALICIA - MOTHER Comments SW WAS UNABLE TO MEET WITH PATIENT AT BEDSIDE DUE TO MEDICAL CONDITION. SW WAS PROVIDED AQUILINO ALICIA [phone]. AQUILINO PROVIDED PATIENT'S HOME ADDRESS: [address] [place] [address] [place] [address]. Chargeback Specialist, Realtionship and Phone Number AQUILINO GORMAN [phone] Healthcare Power of Feeder Catcher Tobacco No Does Patient Have a POLST No Identifying Problems No Social Work Triggers Is A Social Work Consult Needed No Mandate Report Filed No Explanation Of Identifying Problems PATIENT IS A 45-YEAR-OLD FEMALE ADMITTED FOR ACUTE UTI. PATIENT HAS PMHX OF DIABETES AND LEFT LEG AMPUTATION. SW WILL PROVIDE SUBSTANCE ABUSE RESOURCES IN PATIENT'S CHART FOR DISCHARGE. Admitted From Home Pre-Admission Level Of Functioning Status Independent With DME Level Of Functioning Comment PER AQUILINO, PATIENT IS ABLE TO CARE FOR HERSELF WITH ELECTRIC WHEELCHAIR. Prior Resources/Services Used In Last 12 Months Substance Use Prior Resources/Service Comments AQUILINO STATED PATIENT USED TO GO TO [facility] FOR HEROIN ADDICTION. Other DME: ELECTRIC WHEELCHAIR. Living Situation Apartment Lives With Family Patient Had Caregiver No Home Support No Caregiver Issues Financial Issues No Known Financial Issue Factors/Needs No D/C Needs Identified Pt/Rep Participated In Discharge Plan Yes Patient/Family Agress With Discharge Plan Yes Discharge Plan Comments TENTATIVE DISCHARGE PLAN IS FOR PATIENT TO RETURN HOME. DC Plan Status Initiated
[2020-07-15] MEDS ORDERED: SKINTEGRITY HYDROGEL TP PRN (11:40)
[2020-07-15] MEDS: INSULIN LISPRO SLIDING SCALE 100 UNITS/ML VIAL SUBQ PRN ×3 (11:44→21:12)
--- NOTE | 2020-07-15 11:44 | NUR ---
CHECKED BLOOD GLUCOSE AND RECEIVED 237, ADMINISTERED 4 UNIT OF HUMALOG, MED EDUCATION PROVIDED. DELIVERED LUNCH TRAY TO PATIENT'S ROOM. PATIENT IS IN ULTRASOUND AT THIS TIME. NO SIGNS OF DISTRESS NOTED. INFANTRY UNIT LEADER IN PLACE. SAFETY MEASURES IN PLACE.
[2020-07-15 12:00] VITALS: BP 115/64
--- NOTE | 2020-07-15 12:25 | NUR ---
PATIENT COMPLAINED 8/10 PAIN ON HER BACK, SHE SAID, "IT HURTS ME SO BADLY, I NEED SOMETHING TO HELP." REPOSITIONED AND ADJUSTED THE PILLOW, PATIENT STATED, " I NEED PAIN MED." MEDICATED WITH MORPHINE, MED EDUCATION PROVIDED, PATIENT FINISHED HER LUNCH, TOOK TRAY OFF. PATIENT IS LYING ON BED AND WATCHING TV. NO SIGNS OF ACUTE DISTRESS NOTED. 6TH GRADE TEACHER IN PLACE. SAFETY MEASURES IN PLACE.
--- NOTE | 2020-07-15 12:50 | NUR ---
PATIENT COMPLAINED THAT SHE DOESN'T LIKE HER LUNCH AND WOULD LIKE TO GET SALAD INSTEAD, PROVIDED. PATIENT IS EATING SALAD ON BED AT THIS TIME. NO SIGNS OF ACUTE DISTRESS NOTED. TOPPIECE CUTTER IN PLACE. SAFETY MEASURES IN PLACE.
--- NOTE | 2020-07-15 13:29 | NUR ---
DR BARBOSA IS ROUNDING ON PATIENT AND WAS AWARE THAT PATIENT WILL BE TRANSFER TO TELEMETRY.
[2020-07-15] MEDS: SKINTEGRITY HYDROGEL TP SCH (13:38)
--- NOTE | 2020-07-15 13:43 | NUR ---
CLEANSED WITH NS, PAD DRY, APPLIED HYDROGEL, SECURED WITH DECOMPOISITION DRESSING, PATIENT TOLERATED WELL. WOUND EDUCATION PROVIDED AND PATIENT VERBALIZED UNDERSTANDING. ASSISTED PATIENT TO USE THE BEDSIDE COMMODE AND BACK ON BED SAFELY. MANAGER HOSPICE IN PLACE. SAFETY MEASURES IN PLACE.
--- NOTE | 2020-07-15 14:39 | NUR ---
07/15/20 RD INITIAL ASSESSMENT COMPLETED PLEASE REFER TO NUTRITION ASSESSMENT UNDER CARE ACTIVITY FOR ESTIMATED NUTRITIONAL NEEDS. 1. CONTINUE [facility] 60GM DIET TOLERATED 2. RD PROVIDED NUTRITION EDUCATION ON DIABETES 3. PROVIDE FOOD PREFERENCE IN COMPLIANCE TO [facility] DIET 4. RD TO FOLLOW-UP 3-5 DAYS, MODERATE RISK RAI CHACON RD
[2020-07-15 16:00] VITALS: BP 118/77
--- NOTE | 2020-07-15 16:29 | NUR ---
DR PENALOZA IS ASSESSING PATIENT AT BEDSIDE.
[2020-07-15] MEDS ORDERED: LIDOCAINE MPF 1% 10 MG/ML VIAL INJ SCH (16:35)
[2020-07-15] MEDS ORDERED: LIDOCAINE MPF 1% 5 ML ONE ×2 (16:38→16:40)
--- NOTE | 2020-07-15 16:38 | NUR ---
CHECKED BLOOD GLUCOSE AND RECEIVED 228, COVERED 4 UNIT OF HUMALOG.
[2020-07-15] MEDS ORDERED: HYDROmorphone 1 MG/ML AMP IVP PRN (16:40)
--- NOTE | 2020-07-15 16:45 | NUR ---
CONSENT OBTAINED FOR I&D.
[2020-07-15] MEDS ORDERED: HYDROmorphone 1 MG/ML AMP ONE (16:56)
--- NOTE | 2020-07-15 17:30 | NUR ---
PATIENT TRANSFERRED TO TELEMETRY ROOM 111B WITH ALL PATIENT'S BELONGINGS AND MEDICATION. REPORT GAVE TO ASSIGNED RUPERTO RN. NOTIFIED [facility] TO SEND DINNER TRAY TO TELEMETRY ROOM 111B.
--- NOTE | 2020-07-15 17:31 | NUR ---
RECEIVED REPORT FROM ICU NURSE. RECEIVED 45Y/O FEMALE FROM HOME. WITH CC OF LOW BACK PAIN AND DYSURIA AND DX OF HHNK. PT IS AOX4, ABLE TO VERBALIZE NEEDS, NSR ON TELE MONITOR, ON ROOM AIR, PT IS CONTINENT, REQUIRES ONE PERSON ASSIST TO COMMODE. NO C/O PAIN AT THIS TIME, NO SOB. WITH IV ON LEFT IJ 20G RUNNING NS AT 75CC/HR. SKIN NOT INTACT. WITH UPPER BACK WOUND S/P I&D, LEFT INNER THIGH ABSCESS S/P I&D AND CASIE SCAB. SAFETY PRECAUTIONS IN PLACE. CALL LIGHT WITHIN REACH. WILL CONTINUE TO MONITOR
--- NOTE | 2020-07-15 18:15 | NUR ---
COVID RAPID TEST DONE AND SPECIMEN SENT TO LAB
--- NOTE | 2020-07-15 19:00 | NUR ---
WITH C/O UPPER BACK WOUND PAIN AND DYSURIA 06/24. MEDICATED WITH MORPHINE ORDERED. WILL ENDORSE TO NEXT SHIFT FOR CONTINUITY OF CARE
--- NOTE | 2020-07-15 19:01 | NUR ---
RECEIVED BEDSIDE ENDORSEMENT FROM AM SHIFT RN. PATIENT IS AOX4. NO SOB. DENIES PAIN. WITH L I.J. 20 G., INTACT INFUSING IVF. S/P I & D TO LEFT INNER THIGH ABSCESS. LEFT UPPER BACK I & D 3 WKS AGO. DRESSING INTACT. FALL PREVENTION PROTOCOL IN PLACE, SAFETY MEASURES IN PLACE, PLAN OF CARE DISCUSSED. CALL LIGHT WITHIN REACH.
[2020-07-15 20:00] VITALS: BP 116/85
[2020-07-15] MEDS ORDERED: NACL 0.9% 1,000 ML IV SCH (20:53)
[2020-07-15] MEDS: CLINDAMYCIN 600 MG in DEXTROSE 5% 50 ML IV SCH (20:59)
[2020-07-15] MEDS: INSULIN LANTUS 100 UNITS/ML 10 ML VIAL SUBQ SCH (21:13)
--- NOTE | 2020-07-15 21:17 | NUR ---
DUE MEDS GIVEN ORDERED,TOLERATED WELL, NO A/R NOTED. PATIENT IS ANXIOUS, REQUESTED TO TAKE HER ATIVAN. ATIVAN 1MG IVP GIVEN FOR PRN ANXIETY ORDERED. KEPT COMFORTABLE.
--- NOTE | 2020-07-15 22:05 | NUR ---
LEFT INNER THIGH DRESSING DISLODGED, CHANGED.
[2020-07-16] VITALS: BP 114/56
--- NOTE | 2020-07-16 00:06 | NUR ---
V/S TAKEN, KEPT CLEAN, DRY AND COMFORTABLE.
[2020-07-16] MEDS: MORPHINE SULFATE 4 MG/ML SYR IVP PRN ×5 (03:45→22:05)
[2020-07-16 04:00] VITALS: BP 133/84
[2020-07-16] MEDS: NACL 0.9% 1,000 ML IV SCH ×2 (04:05→21:58)
[2020-07-16] MEDS: CLINDAMYCIN 600 MG in DEXTROSE 5% 50 ML IV SCH ×3 (04:06→21:48)
--- NOTE | 2020-07-16 04:06 | NUR ---
CLINDAMYCIN IV GIVEN ORDERED. NO A/R NOTED.
[2020-07-16] MEDS: BLOOD GLUCOSE MONITORING 1 DEV DEV FS SCH ×4 (06:32→21:41)
[2020-07-16] MEDS: INSULIN LISPRO SLIDING SCALE 100 UNITS/ML VIAL SUBQ PRN ×4 (06:34→21:43)
--- NOTE | 2020-07-16 06:34 | NUR ---
BLOOD SUGAR CHECKED 249. HUMALOG 4 UNITS SQ GIVEN ORDERED. TOLERATED WELL.
--- NOTE | 2020-07-16 07:25 | NUR ---
RECEIVED PATIENT FROM NIGHT NURSE. PATIENT IS AWAKE, ALERT, ORIENTED X4. RESP EVEN AND UNLABORED ON ROOM AIR. IV ACCESS IS INTACT AND PATENT. DENIES OF PAIN AT THIS TIME. PATIENT IS ABLE TO MAKE NEEDS KNOWN. WILL PROVIDE DRESSING CHANGE NEEDED. PLAN OF CARE DISCUSSED WITH PATIENT. PATIENT VERBALIZED UNDERSTANDING. SAFETY MEASURES IN PLACE. CALL LIGHT WITHIN REACH. WILL CONTINUE TO MONITOR.
--- NOTE | 2020-07-16 07:27 | NUR ---
PATIENT IS IN STABLE CONDITION. BEDSIDE ENDORSEMENT GIVEN TO SHIRA GA FOR CONTINUITY OF CARE.
[2020-07-16 08:00] VITALS: BP 115/63
[2020-07-16] MEDS: INSULIN LANTUS 100 UNITS/ML 10 ML VIAL SUBQ SCH ×2 (08:09→21:00)
[2020-07-16] MEDS: ENOXAPARIN 30 MG/0.3 ML SYR SUBQ SCH (08:11)
--- NOTE | 2020-07-16 08:39 | NUR ---
MORNING ROUTINE MEDICATIONS GIVEN. DRESSING CHANGED TO RIGHT UPPER BACK OPEN WOUND AND ALSO TO LEFT MEDIAL THIGH PACKING AND DRESSING CHANGED, REINFORCED BY COMPOSITE DRESSING. NO DRAINAGE NOTED TO AFFECTED AREAS. PATIENT TOLERATED WELL. IV TO EXTERNAL JUGULAR IS PATENT AND INTACT. SKIN IS WARM TO TOUCH. PATIENT IS ABLE TO MAKE NEEDS KNOWN. CALL LIGHT WITHIN REACH. WILL CONTINUE TO MONITOR.
--- NOTE | 2020-07-16 09:50 | NUR ---
DR WARREN SPOKE TO PATIENT ABOUT POSSIBLE DISCHARGE TO A [facility]. PATIENT STATED SHE WANTS TO GO TO A FACILITY NEAR HER FAMILY IN [place]. PATIENT STATED SHE LIKES [facility] BECAUSE SHES BEEN THERE BEFORE AND SHE KNOWS THE STAFFS. WILL RELAY INFO TO SS.
[2020-07-16] MEDS: LORazepam 2 MG/ML VIAL IVP PRN ×2 (10:57→23:46)
[2020-07-16] MEDS: ACETAMINOPHEN 325 MG TAB PO PRN (11:07)
[2020-07-16 12:00] VITALS: BP 142/99
--- NOTE | 2020-07-16 14:05 | NUR ---
PATIENT STATED SHE WANTED TO GO [facility]MA. PATIENT STATED SHE HAS A LOT OF FAMILY PROBLEMS AND SHE NEEDS TO TAKE CARE OF THEM. DR WARREN PAGED. PATIENT IS ENCOURAGED TO SPEAK TO DR WARREN ABOUT HER DECISION. WILL CONTINUE TO MONITOR.
[2020-07-16] MEDS: SKINTEGRITY HYDROGEL TP SCH (14:13)
[2020-07-16 16:00] VITALS: BP 128/76
--- NOTE | 2020-07-16 17:11 | NUR ---
PATIENT CHANGED HER MIND AND DECIDED NOT TO GO AMA. PATIENT STATED SHE WILL WAIT FOR A SNF PLACEMENT.
[2020-07-16] MEDS: MUPIROCIN CA NASAL 2% 1GM TUBE NS SCH (18:04)
[2020-07-16] MEDS: CHLORHEXADINE GLUC 2% CLOTH TP SCH (18:05)
--- NOTE | 2020-07-16 18:11 | NUR ---
IV ACCESS IS DISLODGED. WILL ATTEMPT TO INSERT. PATIENT REQUESTED AFTER SHE HAD EATEN HER DINNER.
--- NOTE | 2020-07-16 19:30 | NUR ---
NO IV ACCESS AT THIS TIME. ATTEMPTS MADE UNSUCCESSFUL. WILL ENDORSED TO NIGHT NURSE. PATIENT IN STABLE CONDITION.
--- NOTE | 2020-07-16 19:31 | NUR ---
RECEIVED PT FROM DAY RN. PT AOX4 ON ROOM AIR. RESPIRATIONS EVEN AND UNLABORED. DENIES PAIN. PT HAS NO IV ACCESS. WILL FOLLOW UP WITH REINSERTION. PT HAS L BELOW KNEE AMPUTATION, HAS WOUND ON UPPER BACK AND LEFT MEDIAL THIGH, REINFORCED WITH DRESSING. SAFETY MEASURES IN PLACE. CALL LIGHT WITHIN REACH. WILL CONTINUE TO MONITOR
[2020-07-16 20:00] VITALS: BP 125/82
--- NOTE | 2020-07-16 21:40 | NUR ---
ER NURSE REINSERTED IV ON R LATERAL PINKY 24G, PATENT AND INTACT.
--- NOTE | 2020-07-16 21:45 | NUR ---
PT BLOOD SUGAR 159. ADMINISTERED 2 UNITS INSULIN PER MD ORDERS. PT TOLERATED WELL. WILL CONTINUE TO MONITOR
--- NOTE | 2020-07-16 21:50 | NUR ---
ADMINISTERED SCHEDULED MEDICATION PER MD. PT TOLERATED WELL. WILL CONTINUE TO MONITOR
--- NOTE | 2020-07-16 22:05 | NUR ---
PT C/O UPPER BACK WOUND PAIN 06/24. ADMINISTERED PAIN MEDICATION PER ORDERS. WILL CONTINUE TO MONITOR
--- NOTE | 2020-07-16 23:40 | NUR ---
PT REQUEST FOR PANG CATH INSERTION BECAUSE URINE DRIPS DOWN TO WOUND AND FEELS BURNING SENSATION. MADE AWARE. PANG CATH INSERTED BY CHARGE NURSE. PT TOLERATED WELL. WILL CONTINUE TO MONITOR
[2020-07-16 23:58] LABS: APPEARANCE,URINE SL CLOUDY (CLEAR); BILIRUBIN,URINE NEGATIVE (NEGATIVE); BLOOD, URINE 2+ (NEGATIVE); COLOR,URINE YELLOW (YELLOW); LEUKOCYTE ESTERASE ,URINE NEGATIVE (NEGATIVE); NITRITE, URINE NEGATIVE (NEGATIVE); PH,URINE 6.5 (5.0-9.0); UGLUCOSE 3+ (NEGATIVE)
[2020-07-17] VITALS: BP 132/83
[2020-07-17] MEDS ORDERED: diphenhydrAMINE 50 MG/ML VIAL IVP PRN (00:40)
[2020-07-17 00:56] LABS: RBC,URINE 11-20 (MOD) /HPF (0-5); WBC,URINE 0-5 /HPF (0-5); YEAST,URINE Moderate /HPF (None Seen)
--- NOTE | 2020-07-17 01:15 | NUR ---
PT ASLEEP IN BED. RESPIRATIONS EVEN AND UNLABORED. WILL CONTINUE TO MONITOR
--- NOTE | 2020-07-17 03:35 | NUR ---
PT ASLEEP IN BED. NO DISTRESS NOTED. WILL CONTINUE TO MONITOR
[2020-07-17 04:00] VITALS: BP 135/79
[2020-07-17] MEDS: CLINDAMYCIN 600 MG in DEXTROSE 5% 50 ML IV SCH ×2 (05:28→12:54)
[2020-07-17] MEDS: MORPHINE SULFATE 4 MG/ML SYR IVP PRN ×3 (06:08→18:33)
[2020-07-17] MEDS: BLOOD GLUCOSE MONITORING 1 DEV DEV FS SCH ×3 (06:36→17:14)
[2020-07-17] MEDS: INSULIN LISPRO SLIDING SCALE 100 UNITS/ML VIAL SUBQ PRN ×3 (06:39→17:21)
--- NOTE | 2020-07-17 06:40 | NUR ---
PT BLOOD SUGAR 227. ADMINISTERED 4 UNITS INSULIN. PT TOLERATED WELL. WILL CONTINUE TO MONITOR
--- NOTE | 2020-07-17 07:10 | NUR ---
ENDORSED PT TO APPLIANCE REPAIRER NURSE FOR CONTINUITY OF CARE. Addendum: 07/17/20 at 1949 by Keyana Dobson RN TIME FOR THE ABOVE NOTE IS 1909
--- NOTE | 2020-07-17 07:35 | NUR ---
ENDORSED PT IN STABLE CONDITION TO DAY RN FOR CONTINUITY OF CARE.
--- NOTE | 2020-07-17 07:40 | NUR ---
RECEIVED PT FROM PUBLIC HEALTH REPRESENTATIVE NURSE, PT IS AWAKE WITH AN IV LINE ON THE RT PINKY WITH NS INFUSING AT 75ML/HR, SAFETY AND FALL PRECAUTION, PT IS ON ROOM AIR AND DENIES PAIN, WILL CONTINUE TO MONITOR PT.
[2020-07-17 08:00] VITALS: BP 142/94
[2020-07-17] MEDS ORDERED: LACT10CA PO (09:00)
[2020-07-17] MEDS ORDERED: LACTOBACILLUS RHAMNOSUS GG 1 EACH CAP PO SCH (09:00)
[2020-07-17] MEDS ORDERED: CLIN300C2 PO (09:00)
[2020-07-17] MEDS: INSULIN LANTUS 100 UNITS/ML 10 ML VIAL SUBQ SCH (09:29)
[2020-07-17] MEDS: ENOXAPARIN 30 MG/0.3 ML SYR SUBQ SCH (09:30)
[2020-07-17] MEDS: LORazepam 2 MG/ML VIAL IVP PRN ×2 (09:44→16:46)
--- NOTE | 2020-07-17 09:44 | NUR ---
PT WAS GIVEN THE SCHEDULED MEDICATIONS TOLERATED, PARAMETERS CHECKED, BP IS 142/94, PULSE IS 86, O2 SATURATION IS AT 97%, RA AND RESPIRATION IS 18/MIN, WILL MONITOR PT.
--- NOTE | 2020-07-17 10:21 | NUR ---
WOUND CARE RE-EVALUATION NOTE: S/P I&D TO LEFT MEDIAL THIGH -LEFT MEDIAL THIGH SURGICAL WOUND 0.5X3X1.5CM, WOUND BED 100% GRANULATING TISSUE, SMALL AMOUNT SEROUS DRAINAGE, NO ODOR, VERA WOUND SKIN DRY AND INTACT, PAIN 2/10. -MULTIPLE DRY SCABS TO LIMBS AND TRUNK OF BODY, DRY AND NO REDNESS AT THIS TIME.INSTRUCT PT NOT TO PICK THE DRY SCABS. RECOMMENDATION-CLEANSE SURGICAL WOUND TO LEFT MEDIAL THIGH WITH NS, PAT DRY, APPLY HYDROGEL PACK WITH ADAPTIC DRESSING TO WOUND BED AND COVER WITH COMPOSITE DRESSING QD AND PRN IF SOILING. -APPLY HYDRAGUARD TO LIMBS AND TRUNK OF BODY BID AND LEAVE IT OPEN TO AIR POC DISCUSSED WITH PRIMARY RN AND PT. PT VERBALIZES UNDERSTANDING.
[2020-07-17 12:00] VITALS: BP 124/75
[2020-07-17] MEDS: NACL 0.9% 1,000 ML IV SCH (12:46)
[2020-07-17] MEDS: SKINTEGRITY HYDROGEL TP SCH (12:59)
--- NOTE | 2020-07-17 13:30 | NUR ---
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 PT VERBALIZED HER HEART FEELS FINE. INFORMED.
--- NOTE | 2020-07-17 15:07 | NUR ---
PANG CATHETER WAS DISCONTINUED NOW DUE TO PT'S REQUEST AND PT VERBALIZED THAT SHE FEELS DISCOMFORT.
[2020-07-17 15:42] LABS: BASOPHILS % (AUTO) 0.5 % (0.0-2.0); EOSINOPHILS # (AUTO) 0.1 K/uL (0-0.4); EOSINOPHILS % (AUTO) 0.9 % (0.0-4.0); HEMATOCRIT 34.1 % (36-48); HEMOGLOBIN 11.3 g/dL (12.0-16.0); LYMPHOCYTES # (AUTO) 2.9 K/uL (2.5-16.5); LYMPHOCYTES % (AUTO) 41.1 % (20.5-51.1); MEAN CORPUSCULAR HEMOGLOBIN 29 pg (27-31); MEAN CORPUSCULAR HGB CONC 33 g/dL (33-37); MEAN CORPUSCULAR VOLUME 87.1 fL (80-94); MONOCYTES # (AUTO) 0.4 K/uL (0.8-1.0); MONOCYTES % (AUTO) 5.1 % (1.7-9.3); NEUTROPHILS # (AUTO) 3.7 K/uL (1.8-7.7); NEUTROPHILS % (AUTO) 52.4 % (42.2-75.2); PLATELET COUNT (AUTO) 314 K/uL (140-450); RED BLOOD CELL COUNT(AUTO) 3.92 MIL/uL (4.20-5.40); RED CELL DISTRIBUTION WIDTH 14.1 % (11.6-13.7); WHITE BLOOD COUNT (AUTO) 7.1 K/uL (4.8-10.8)
[2020-07-17 15:56] LABS: ANION GAP 12.4 (8-16); CARBON DIOXIDE 24.7 mmol/L (21-32); CREATININE 0.9 mg/dL (0.6-1.3); POTASSIUM 4.1 mmol/L (3.5-5.1)
[2020-07-17 16:00] VITALS: BP 110/67
--- NOTE | 2020-07-17 16:26 | NUR ---
CALLED [facility] AT [phone] AND GAVE REPORT TO SHIRA SANTORO, PT WILL BE CONTINUED WITH CLINDAMYCIN ORAL Q6H FOR 7DAYS AND LACTOBACILLUS, AND WILL BE UNDER THE SERVICE OF DR. ROWLAND AND WILL BE IN II8-A, SUPERVISOR FLOOR ASSEMBLY TIME WILL BE AT 1800 BY [facility], SHIRA BAKER VERBALIZED UNDERSTANDING.
[2020-07-17] MEDS: MUPIROCIN CA NASAL 2% 1GM TUBE NS SCH (17:08)
[2020-07-17] MEDS: CHLORHEXADINE GLUC 2% CLOTH TP SCH (17:08)
--- NOTE | 2020-07-17 18:30 | NUR ---
DISCHARGED INSTRUCTIONS AND TEACHINGS WERE GIVEN MERLE PT NOW, PAPER WORK SIGNED AND WILL ENDORSE TO RETAIL FURNITURE SALES NURSE.
--- NOTE | 2020-07-17 19:05 | NUR ---
RECEIVED PT IN STABLE CONDITION FROM AM NURSE. AAOX4. MS PT. FOR D/C TO [facility]. D/C PAPERS AND INSTRUCTIONS GIVEN TO PT PER AM NURSE. STILL WITH IV ACCESS ON R HAND. WILL WAIT FOR DISHING MACHINE OPERATOR.
--- NOTE | 2020-07-17 19:10 | NUR ---
ENDORSED PT TO PIPE PROCESSOR NURSE FOR CONTINUITY OF CARE.
--- NOTE | 2020-07-17 19:15 | NUR ---
[facility] HERE AND PICKED UP PT. ALL D/C PAPERS GIVEN TO TRANSPORTER. ALL PERSONAL BELONGINGS WITH PT. IV ACCESS ON R HAND REMOVED. NO REDNESS OR BLEEDING NOTED. DISCHARGED IN STABLE CONDITION.
== END 2020-07-17 19:15 | DRG 710 ==
LOC: MED 18:02 → MMU 21:04 → UNDODEPER 07-15 01:35 → MIC 07-15 05:55 → MTU 07-15 17:23
PROVIDERS: ADMIT Internal Medicine; ATTEND Internal Medicine
PROC: 0JB70ZZ Excision of Back Subcutaneous Tissue and Fascia, Open Approach (ICD-10-PCS; principal; 2020-07-15)
PROC: 0J9M0ZZ Drainage of Left Upper Leg Subcutaneous Tissue and Fascia, Open Approach (ICD-10-PCS; 2020-07-15)
DX: A41.9 Sepsis, unspecified organism (principal); E11.10 Type 2 diabetes mellitus with ketoacidosis without coma; N39.0 Urinary tract infection, site not specified; F15.10 Other stimulant abuse, uncomplicated; N17.0 Acute kidney failure with tubular necrosis; E43 Unspecified severe protein-calorie malnutrition; Z68.28 Body mass index [BMI] 28.0-28.9, adult; F17.200 Nicotine dependence, unspecified, uncomplicated; G89.4 Chronic pain syndrome; I10 Essential (primary) hypertension; L02.416 Cutaneous abscess of left lower limb; F32.9 Major depressive disorder, single episode, unspecified; F41.9 Anxiety disorder, unspecified; Z20.828 Contact with and (suspected) exposure to other viral communicable diseases; F11.10 Opioid abuse, uncomplicated; E87.1 Hypo-osmolality and hyponatremia; E11.65 Type 2 diabetes mellitus with hyperglycemia; Z79.4 Long term (current) use of insulin; Z89.512 Acquired absence of left leg below knee; Z91.14 Patient's other noncompliance with medication regimen; Z88.5 Allergy status to narcotic agent
CPT/HCPCS: 36415; 76881; 80048; 80053; 81001; 82009; 82948; 83690; 83735; 84703; 85025; 87070; 87075; 87081; 87086; 87186; 87205; 96361; 96365; 96375; 97110; 97116; 97161-GP; 97530; 99285; A6248; J0696; J1170; J1650; J1815; J2001; J2060; J2270; J2405; J3010; J3490; J7030; J7060; Q0092

== ENCOUNTER 2020-07-25 22:10 | Emergency (ER) | payer OTHER ==
[~2020-07-25] VITALS: Ht 172.7 cm; Wt 77.1 kg
[~2020-07-25 22:10] MED LIST changes: +BEN50 PO; +CLIN300C2 PO; -CYCL10TA13 PO; -DULO60EC PO; +GABA300C PO; +LACT10CA PO; +LEVEMIR SUBQ; -MIRT15TA PO; -PREG200C PO; +TOR30I IM; +TRAM50TA1 PO; +TRAZ-343 PO
[2020-07-25 22:15] VITALS: BP 146/82
--- NOTE | 2020-07-25 22:19 | NUR ---
PT BIBA BLS. TAKEN TO BED 9
--- NOTE | 2020-07-25 22:29 | NUR ---
45 Y/O FEMALE FROM [facility]. BIBA C/O LOW BACK PAIN. PT STATES 8/10 LOW BACK PAIN. BURNING UPON URINATION AND RETENTION. ABD ROUND, NON TENDER. BOWEL SOUNDS ACTIVE. PT DENIES ANY FEVER, CP, SOB, OR COUGH AT THIS TIME; PATIENT POSITIONED FOR COMFORT; HOB ELEVATED; BEDRAILS UP X2; BED DOWN. ER MD MADE AWARE OF PT STATUS. MEDHX: DM, HTN, PTSD, L BKA ALLERGIES: OXYCODONE
--- NOTE | 2020-07-25 23:12 | NUR ---
ERMD AT BEDSIDE EVALUATING PT
[2020-07-25] MEDS ORDERED: NACL 0.9% 1,000 ML IV SCH (23:46)
[2020-07-25] MEDS ORDERED: KETOROLAC 30 MG/ML VIAL IVP ONE (23:50)
--- NOTE | 2020-07-25 23:52 | NUR ---
LAB AT BEDSIDE
[2020-07-26 00:18] LABS: BASOPHILS % (AUTO) 0.5 % (0.0-2.0); EOSINOPHILS # (AUTO) 0.1 K/uL (0-0.4); EOSINOPHILS % (AUTO) 1.2 % (0.0-4.0); HEMATOCRIT 31.8 % (36-48); HEMOGLOBIN 10.8 g/dL (12.0-16.0); LYMPHOCYTES # (AUTO) 5.1 K/uL (2.5-16.5); LYMPHOCYTES % (AUTO) 49.2 % (20.5-51.1); MEAN CORPUSCULAR HEMOGLOBIN 30 pg (27-31); MEAN CORPUSCULAR HGB CONC 34 g/dL (33-37); MEAN CORPUSCULAR VOLUME 88.1 fL (80-94); MONOCYTES # (AUTO) 0.8 K/uL (0.8-1.0); MONOCYTES % (AUTO) 7.3 % (1.7-9.3); NEUTROPHILS # (AUTO) 4.3 K/uL (1.8-7.7); NEUTROPHILS % (AUTO) 41.8 % (42.2-75.2); PLATELET COUNT (AUTO) 293 K/uL (140-450); RED BLOOD CELL COUNT(AUTO) 3.61 MIL/uL (4.20-5.40); RED CELL DISTRIBUTION WIDTH 14.5 % (11.6-13.7); WHITE BLOOD COUNT (AUTO) 10.4 K/uL (4.8-10.8)
[2020-07-26 00:39] LABS: ALBUMIN 2.6 g/dL (3.4-5.0); ANION GAP 14.5 (8-16); CREATININE 1.1 mg/dL (0.6-1.3); POTASSIUM 4.5 mmol/L (3.5-5.1); TOTAL BILIRUBIN 0.1 mg/dL (0.0-1.0)
[2020-07-26] MEDS ORDERED: INSULIN REGULAR, HUMAN 100 UNIT/ML VIAL IV ONE ×2 (00:50→01:35)
[2020-07-26 00:52] LABS: APPEARANCE,URINE CLEAR (CLEAR); BILIRUBIN,URINE NEGATIVE (NEGATIVE); BLOOD, URINE 1+ (NEGATIVE); COLOR,URINE YELLOW (YELLOW); LEUKOCYTE ESTERASE ,URINE NEGATIVE (NEGATIVE); NITRITE, URINE NEGATIVE (NEGATIVE); PH,URINE 6.5 (5.0-9.0); UGLUCOSE 3+ (NEGATIVE)
--- NOTE | 2020-07-26 00:55 | NUR ---
PT TAKEN TO CT SCAN VIA SHRUTI
--- NOTE | 2020-07-26 01:01 | NUR ---
PT BACK FROM CT
--- NOTE | 2020-07-26 01:01 | NUR ---
PT RETURN FROM CT
[2020-07-26 01:02] LABS: WBC,URINE 0-5 /HPF (0-5)
[2020-07-26] MEDS ORDERED: NACL 0.9% 1,000 ML IV ONE (01:35)
[2020-07-26] MEDS ORDERED: ACETAMINOPHEN EXTRA STRENGTH 500 MG TAB ONE (02:12)
--- NOTE | 2020-07-26 03:33 | NUR ---
CALLED [facility]. STATED WILL CALL BACK REGARDING READMISSION.
--- NOTE | 2020-07-26 03:53 | NUR ---
FOLLOWED UP WITH [facility]. SPOKE WITH DAYANARA. STATED UNABLE TO READMIT PT DUE TO "SPECIFIC REASONS". ALSO STATED THAT THEIR HOUSE SUPERVISIOR WILL NOT COME IN TILL 0800.
--- NOTE | 2020-07-26 04:20 | NUR ---
contacted [facility] and spoke to King regarding pt not being able to readmitted back to facility. Cannot give a response why they cannot take back patient and just repeatedly states, " I will call the supervisor powdered sugar" repeatedly.
--- NOTE | 2020-07-26 04:25 | NUR ---
Per pt, her home facility told her that she is to be taken back to [facility] and spoke to talent acquisition administrator, Mckenna, and told the pt that she still has couple days and that they will help pt with home placement.
--- NOTE | 2020-07-26 04:40 | NUR ---
spoke again with King from [facility]. states he is trying to contact the DON.
--- NOTE | 2020-07-26 05:13 | NUR ---
# 16 FR Mendez catheter with 10 ml utilizing sterile technique. Immediate return of 100 ml urine noted. Bedside drainage bag placed below level of bladder. Pt tolerated procedure WELL.
[2020-07-26] MEDS ORDERED: HYDROcodone/APAP 5/325 MG 1 TAB TAB PO ONE ×2 (05:35→09:45)
--- NOTE | 2020-07-26 05:52 | NUR ---
PICKUP ETA 1200.
--- NOTE | 2020-07-26 07:16 | NUR ---
REPORT GIVEN TO CORINNE SILVA CONTINUITY OF CARE
--- NOTE | 2020-07-26 07:18 | NUR ---
Received report from SHIRA Cruz. Transfer of care at this time. Pt resting with eyes closed, VSS
--- NOTE | 2020-07-26 07:33 | NUR ---
Pt received breakfast tray, sitting upright in bed eating.
--- NOTE | 2020-07-26 08:02 | NUR ---
REMOVED 1600ML OF URINE FREOM PANG CATH BAG.
--- NOTE | 2020-07-26 08:02 | NUR ---
PT ASKED IF SHE COULD CALL AN UBER OR TAXI TO TAKE HER BACK TO HER FACILITY. ADVISED THAT WE HAVE TO WAIT FOR TRANSPORTATION TO TAKE HER BACK.
--- NOTE | 2020-07-26 09:37 | NUR ---
Patient requesting [facility] for coccyx pain. Pt verbalizing she understands she is returning to facility at 1200 but wants something for pain before leaving. Dr. Daniel made aware. Pt is pending discharge from Dr. Alaniz. Waiting for orders.
[2020-07-26] MEDS ORDERED: HYDROcodone/APAP 5/325 MG 1 TAB TAB ONE (09:45)
--- NOTE | 2020-07-26 10:10 | NUR ---
Spoke to Yaneth from [facility] and updated her about conversation with [facility]. I explained to her that nurse Irene I spoke to needed to speak to her shelter case manager about her bed status. She explained that she needed to find out if the patient was discharged or had a bed hold. Yaneth explained that patient would be returning to [facility] and they need to hold her bed for 7 days at least. Yaneth said she would [facility] and let them know that patient would be returning.
--- NOTE | 2020-07-26 10:14 | NUR ---
Yaneth from [facility] direct line [phone]
--- NOTE | 2020-07-26 11:05 | NUR ---
Spoke to Yaneth and received confirmation # [id number] to re-admit patient back to facility. Spoke to Halie at [facility] and was I gave her the authorization #. She stated that she needed to confirm with Yaneth that this # was the auth number to admit. Patient will return to room 125-A. Primary RN pending to call and given report.
--- NOTE | 2020-07-26 11:19 | NUR ---
Report given to Dandy at [facility]
[2020-07-26 12:56] VITALS: BP 125/80
--- NOTE | 2020-07-26 12:56 | NUR ---
Patient discharged with v/s stable. Written and verbal after care instructions given and explained. Patient verbalized understanding. Ambulatory with steady gait. All questions addressed prior to discharge. Advised to follow up with PMD and urology consult with Dr. Crawford.
[2020-08-01] MEDS ORDERED: ACETAMINOPHEN EXTRA STRENGTH 500 MG TAB PO ONE (02:40)
== END 2020-07-26 12:56 ==
LOC: MED 22:10
DX: R10.9 Unspecified abdominal pain (principal); E11.65 Type 2 diabetes mellitus with hyperglycemia; R33.9 Retention of urine, unspecified; Z89.512 Acquired absence of left leg below knee; Z88.6 Allergy status to analgesic agent; Z79.899 Other long term (current) drug therapy
CPT/HCPCS: 36415; 74176; 80053; 81001; 81025; 82948; 85025; 96361; 96374; 96375; 99284; J1815; J1885; J7030

== ENCOUNTER 2020-11-11 16:40 | Emergency (ER) | payer OTHER ==
[~2020-11-11] VITALS: Ht 172.7 cm; Wt 74.4 kg
--- NOTE | 2020-11-11 17:11 | NUR ---
Patient BIBA ALS, transferred to bed 8. RN evaluating patient at bedside.
[2020-11-11 17:16] VITALS: BP 135/80
--- NOTE | 2020-11-11 17:16 | NUR ---
Pt BIBA from home s/p overdose on "red" pills patient believed to be Morphine. Pt found unresponsive by mother with agonal breathing, rescue gave narcan nasal and patient became responsive Allergic to oxycodone medhx: DM, left leg ampuation
--- NOTE | 2020-11-11 17:37 | NUR ---
Attempted IV start, patient uncooperative, states she's a hard stick and they usually place in her neck.
--- NOTE | 2020-11-11 18:41 | NUR ---
Dr. Glover aware that patient is refusing IV start and urine. Stated he will probably send patient home
--- NOTE | 2020-11-11 19:37 | NUR ---
RECEIVED REPORT FROM SHIRA TALLEY FOR CONTINUATION OF CARE AT THIS TIME.
--- NOTE | 2020-11-11 19:37 | NUR ---
Detailed report given to SHIRA Collazo for night supervisor. Questions answered, meds and orders reviewed.
--- NOTE | 2020-11-11 19:39 | NUR ---
CHARGE NURSE PROVIDED ME WITH MOTHER'S NUMBER [phone]
--- NOTE | 2020-11-11 19:40 | NUR ---
CALLED FIXING MACHINE OPERATOR LINDA TO RECEIVE A TAXI VOUCHER FOR THIS PT TO ADDRESS: [address] [place] [address], [phone].
--- NOTE | 2020-11-11 19:42 | NUR ---
DANCE CRITIC LINDA IS UNABLE TO PROVIDE INFORMATION FOR A TAXI VOUCHER AT THIS TIME DUE TO OTHER UNIT EMERGENCY AT THIS TIME.
--- NOTE | 2020-11-11 19:50 | NUR ---
PT IS AWAKE A/OX4 AND SITTING UPRIGHT WITH HOB IN SEMI-FOWLERS POSITION. BED IS LOCKED AND IN LOWEST POSITION. VISIBLE RISE AND FALL OF CHEST NOTED. PT IS NOT IN ANY VISIBLE DISTRESS AT THIS TIME. SIDE RAILSX1. PT IS CONNECTED TO THE ADVENTURE THERAPIST SAO2@98% ON 2LNC. CALL LIGHT IS WITHIN REACH. PT IS AWARE OF DISCHARGE. SERVICES FOR TRANSPORT VIA TAXI ARE IN PLACE AT THIS TIME. WILL CONTINUE TO MONITOR.
--- NOTE | 2020-11-11 20:15 | NUR ---
PTS MOTHER NOTIFIED BY THE CHARGE NRUSE THAT THE PT IS BEING DISCHARGED AND IS AWAITING TAXI SERVICES
[2020-11-11 20:55] VITALS: BP 128/82
--- NOTE | 2020-11-11 20:55 | NUR ---
Patient discharged with v/s stable. Written and verbal after care instructions given and explained. Patient alert, oriented and verbalized understanding of instructions. Wheel Chair Assisted with to the ER lobby to await taxi services for transportation home. All questions addressed prior to discharge. ID band removed. Patient advised to follow up with PMD. Rx of Narcan given. Patient educated on indication of medication including possible reaction and side effects. Opportunity to ask questions provided and answered.
== END 2020-11-11 20:55 | disposition home or self-care (01) ==
LOC: MED 16:40
DX: T42.6X1A Poisoning by other antiepileptic and sedative-hypnotic drugs, accidental (unintentional), initial encounter (principal); E11.9 Type 2 diabetes mellitus without complications; Z79.84 Long term (current) use of oral hypoglycemic drugs; Z79.899 Other long term (current) drug therapy; Z88.5 Allergy status to narcotic agent; Z89.519 Acquired absence of unspecified leg below knee; Y92.89 Other specified places as the place of occurrence of the external cause
CPT/HCPCS: 99285